=== PATIENT | male | born 2000 | race Two or more races ===

== ENCOUNTER 2020-01-17 17:32 | Emergency (ER) | payer MEDICAID, OTHER ==
[~2020-01-17] VITALS: Ht 175.3 cm; Wt 113.4 kg
[2020-01-17 17:54] VITALS: BP 153/65
== END 2020-01-17 18:32 | disposition home or self-care (01) ==
LOC: ER 17:37
DX: J00 Acute nasopharyngitis [common cold] (principal); F22 Delusional disorders; J45.909 Unspecified asthma, uncomplicated